=== PATIENT | male | born 1990 | race Caucasian/White ===

== ENCOUNTER 2022-04-18 08:00 | Outpatient (CLI) | payer OTHER | END 2022-04-18 23:59 | disposition home or self-care (01) | LOC: LAB.N 08:00 | PROVIDERS: ATTEND Nurse Practitioner | DX: U07.1 COVID-19 (principal) ==

== ENCOUNTER 2022-11-10 14:31 | Outpatient (CLI) | payer OTHER | END 2022-11-10 14:32 | disposition home or self-care (01) | LOC: SC 14:31 | PROVIDERS: ATTEND Nurse Practitioner Family | DX: G47.33 Obstructive sleep apnea (adult) (pediatric) (principal); R09.02 Hypoxemia | CPT/HCPCS: 95806 ==

== ENCOUNTER 2022-11-16 08:40 | Outpatient (CLI) | payer OTHER ==
[2022-11-16 09:20] VITALS: BP 126/78
--- NOTE | 2022-11-16 09:20 | SLEEP CARE CONSULTATION ---
Information from patient questionnaire entered by Irina Cerda. I have reviewed and concur with the information entered by Irina Cerda. This document represents the service I personally performed and the decisions made by , Radha Avery ARNP. History of Present Illness Service Date and Time: 11/16/2022 0840 Initial [place] Sleepiness Scale score: 19 (10/05/22) Current [place] Sleepiness Scale score: 19 (11/16/22) Additional HPI information: JENNIFER DORSEY returns for follow up and results of the recently performed home sleep study. I explained the pathophysiology behind obstructive sleep apnea. We then spent quite a bit of time discussing different treatment options. For mild obstructive sleep apnea, surgery and oral appliance are alternatives to nasal CPAP therapy but in moderate or severe cases, nasal CPAP is the most effective and reliable treatment. Because apnea is primarily in supine position, then positional management therapy could be effective. Methods discussed such as positioning with pillows, using a T-shirt with tennis balls in the back, or commercially available products that have a pillow format on back to prevent supine sleep. I reviewed the impact of weight changes on sleep apnea and strongly recommended losing weight. After some discussion, the patient opted to go with the nasal CPAP therapy. Nasal autoCPAP set at 4-15 cmH20 will be ordered with rationale explained. A manual titration study will be ordered if unable to find optimal pressure with office adjustments. I explained how CPAP machine works and what to expect when using the machine. Using CPAP every night in order to get used to it was emphasized. Patient advised to put CPAP mask on before getting into bed so as not to fall asleep without CPAP. To assist acclimation to CPAP use, it could also be used for a short time during day while reading or watching TV. The patient was instructed to call the CPAP supplier to discuss any mechanical problem that may occur. If the mask given is uncomfortable or is difficult to keep on through the night even with adjustment, contact the CPAP supplier as many will replace with another mask style if notified before 30 days. If snoring or perceives is not getting enough air or too much air from the machine, notify this office. Patient counseled not drink alcohol less than 4 hours before bedtime as it can increase snoring and apnea. Patient was cautioned about risks of drowsy driving until sleepiness symptoms resolve. Sleep Study - Results Type of Sleep Study: Home sleep study (COMPLETED 11-10-22) Prior sleep studies: No Polysomnography/Home Sleep Study results: Physician Impression: The quality of the study is good. The length of the study is adequate (> 240 minutes). Please also see the tabulated and graphic data. 1. Obstructive Sleep Apnea-Hypopnea (ICD-10 G47.33), moderate, with an AHI of 20.0/hr and tika SaO2 of 82%. During the study, the patient had 107 apneas (107 obstructive, 0 central, 0 mixed) and 96 hypopneas. The longest episode lasted 118.5 seconds. The respiratory events occurred more frequently during supine sleep (supine AHI was 32.0 and non-supine, 6.16). 2. Hypoxemia (ICD-10 R09.02), mild, with the lowest oxygen saturation of 82 % and 7.1 minutes with SaO2 under 90%. Baseline oxygen saturation was normal (Average oxygen saturation was 94%). Allergies and Home Medications Drug allergies reviewed: Yes (NKDA) Home medication list reviewed: Yes (no changes) Review of Systems Review of systems same as previous: Yes (no changes) Physical Exam Vital signs obtained and entered by: IRINA Hampton MA Blood Pressure: 126/78 (LEFT ARM) Cuff size: regular Heart Rate: 72 O2 Saturation: 96 Height: 5 ft 11 in Weight: 215 lb 9.6 oz Body Mass Index: 30.0 BMI Classification: Obese Impression and Plan 1. Obstructive Sleep Apnea-Hypopnea Syndrome, moderate, with lowest oxygen s aturation of 82%. Obviously this is the cause of the patients symptoms of unrefreshed sleep, and excessive daytime sleepiness. Positive pressure therapy could benefit hypertension. As mentioned above, the patient will be started on nasal autoCPAP therapy with pressure set at 4-15 cmH2O. A manual titration study will be completed if unable to find optimal treatment pressure with office adjustments. Compliance guidelines also reviewed. A copy of compliance guidelines will be given for reference at check out. Because the apnea is more severe supine, I instructed to avoid sleeping supine using pillow positioning until able to start CPAP use. 2. Hypoxemia, mild, with a tika oxygen saturation of 82% and 7.1 minutes spent under 90%. His baseline oxygen saturation was normal with an average oxygen saturation of 94%. * Nasal auto CPAP therapy, pressure at 4-15 cm H2O. * Attempt to lose weight. * Avoid alcohol consumption near bedtime. * Avoid supine sleep until using CPAP. * The patient is again cautioned about driving until sleepiness completely resolves. * Return one month after CPAP obtained. I will assess response to therapy and compliance at that time. Counseling Topics: Weight loss health impact Visit Type: In Office Time Spent with Patient (minutes): 20 Provider Statement: I spent 100% of the Face to Face Visit with the patient with greater than 50% spent counseling the patient and coordination of care.
== END 2022-11-16 08:41 | disposition home or self-care (01) ==
LOC: SC 08:40
PROVIDERS: ATTEND Nurse Practitioner Family
DX: G47.33 Obstructive sleep apnea (adult) (pediatric) (principal); R09.02 Hypoxemia; E66.9 Obesity, unspecified; Z68.30 Body mass index [BMI] 30.0-30.9, adult
CPT/HCPCS: 99212; 99213

== ENCOUNTER 2023-01-19 12:52 | Outpatient (CLI) | payer OTHER ==
--- NOTE | 2023-01-19 13:17 | SLEEP CARE CONSULTATION ---
Information from patient questionnaire entered by Nu Cerda. I have reviewed and concur with the information entered by Nu Cerda. This document represents the service I personally performed and the decisions made by , Radha Avery ARNP. History of Present Illness Service Date and Time: 01/19/2023 1252 Previous diagnosis: Moderate, Obstructive Sleep Apnea-Hypopnea Syndrome AHI: 20.0 (in 2022) Reason for follow up: first compliance (SET UP 11/27/22) Equipment type: CPAP (RESMED Airsense 10, s/u 11/2022; SD CARD NEEDED FOR DOWNLOAD AND PRESSURE CHANGES) Equipment obtained from: Other ([facility]; got initial supplies) Mask style: Nasal pillows ([place] II; switches with nasal cushion (N20)) Backup mask available: Yes (other mask) Last cushion change: last week Prior sleep studies: No Type of Sleep Study: Home sleep study (COMPLETED 11-10-22) HPI additional information: JENNIFER DORSEY was diagnosed to have moderate, AHI 20.0, obstructive sleep apnea-hypopnea syndrome and returned today for CPAP therapy first compliance follow-up. Sleep Study - Results Type of Sleep Study: Home sleep study (COMPLETED 11-10-22) Prior sleep studies: No CPAP Compliance Data - Data Reviewed with Patient Average duration of nightly device use: 6 hours 16 minutes Compliance rate %: 83 (41/46 days used) Current pressure setting (cmH2O): 4-15 (median 5.9, avg 8.5, max 10.2) Average residual AHI: 1.2 Central apnea: 0.3 Obstructive apnea: 0.3 Hypopnea: 0.4 Average large leak: 0.1 L/min Subjective Missed days of use due to: reports: mask issues (took off mask when sleeping) Patient concerns: reports: condensation in mask/hose. denies: aerophagia, mask discomfort, air blowing in eyes, mask leak noise, nasal congestion, dry mouth, nose, throat, epistaxis Observed to snore while using device: No Current pressure setting perceived as: comfortable On therapy, patient: reports: sleeping better, awakening more refreshed, being more awake and alert during the day, more rested overall. denies: drowsiness while driving (improving) Initial [place] Sleepiness Scale score: 19 (10/05/22) Current [place] Sleepiness Scale score: 15 (01/19/23) Allergies and Home Medications Known drug allergies: No Drug allergies reviewed: Yes Home medication list reviewed: Yes (pill for inflammation (can't remember name)) Allergy and home medication list: Allergies No Known Drug Allergies Allergy (Verified 01/18/23 16:51) Review of Systems Review of systems same as previous: No (sprained tendon in left ankle) Physical Exam Vital signs obtained and entered by: NU Hampton MA Blood Pressure: 122/82 (LEFT ARM) Cuff size: regular Heart Rate: 83 O2 Saturation: 98 Height: 5 ft 11 in Weight: 205 lb (PER PT) Weight change since last visit: 10 lb loss Body Mass Index: 28.5 BMI Classification: Overweight Impression and Plan 1. Obstructive Sleep Apnea-Hypopnea Syndrome, moderate, with good treatment compliance and good apnea control. On CPAP therapy, the patient has better sleep quality and is more rested overall. He has significant improvement of his sleep apnea. The patients pressure will be changed to autoCPAP 8-10 cmH20 to reflect pressures being used. Patient advised to contact me if pressure change is uncomfortable so that it can be adjusted. Goals for apnea control discussed. Patient reports getting some condensation in his mask. He tried to adjust his humidity down but then got a very dry throat. He turned it back on to automatic. He states it does not have condensation every night. I advised trying to increase heated hose setting if condensation continues to be a problem. He voiced understanding. Patient's apnea severity and rationale for treatment to reduce apnea, improve sleep quality and reduce cardiovascular and cerebrovascular events was reviewed. I also reviewed the benefit of consistent device use of CPAP for hypertension. 2. Overweight, unspecified. Currently patients BMI is 28.5. He has lost weight Obesity increases the risk of apnea, CPAP pressure requirements and overall health risks especially cardiovascular and diabetes. Thus patient is advised to continue to try to lose weight. * Change auto CPAP pressure to 8-10 cmH2O * Notify me if snoring with mask or feeling that the pressure is too much or too little * Continue to try to lose weight * Call this office if any problems using CPAP * Return for follow up in 1-2 months, or sooner if concerns arise Counseling Topics: Spare mask, Weight loss health impact Visit Type: In Office Time Spent with Patient (minutes): 20 Provider Statement: I spent 100% of the Face to Face Visit with the patient with greater than 50% spent counseling the patient and coordination of care.
[2023-01-19 13:25] VITALS: BP 122/82
== END 2023-01-19 12:53 | disposition home or self-care (01) ==
LOC: SC 12:52
PROVIDERS: ATTEND Nurse Practitioner Family
DX: G47.33 Obstructive sleep apnea (adult) (pediatric) (principal); E66.3 Overweight; Z68.28 Body mass index [BMI] 28.0-28.9, adult
CPT/HCPCS: 99212; 99213

== ENCOUNTER 2023-02-20 10:21 | Outpatient (CLI) | payer OTHER ==
--- NOTE | 2023-02-20 10:53 | Sleep Patient Instructions ---
Sleep Center Visit Summary - Patient Visit Information Reason for Visit: One month follow up of CPAP therapy after pressure change. - Patient Instructions Additional Instructions: Patient will return for 3-month follow-up of her CPAP therapy. - Clinic Information Contact: [facility] [address] [place] [address] [email or web address] T: [phone]
--- NOTE | 2023-02-20 10:57 | SLEEP CARE CONSULTATION ---
Information from patient questionnaire entered by Irina Cerda. I have reviewed and concur with the information entered by Irina Cerda. This document represents the service I personally performed and the decisions made by , Radha Avery ARNP. History of Present Illness Service Date and Time: 02/20/2023 1021 Previous diagnosis: Moderate, Obstructive Sleep Apnea-Hypopnea Syndrome AHI: 20.0 (in 2022) Reason for follow up: one month (F/U) Equipment type: CPAP (RESMED Airsense 10, s/u 11/2022; SD CARD NEEDED FOR DOWNLOAD AND PRESSURE CHANGES) Equipment obtained from: Other ([facility]; getting supplies) Mask style: Nasal pillows ([place] II; switches with nasal cushion (N20)) Backup mask available: Yes (other mask) Last cushion change: 2 weeks ago Prior sleep studies: No Type of Sleep Study: Home sleep study (COMPLETED 11-10-22) HPI additional information: JENNIFER DORSEY was diagnosed to have moderate, AHI 20, obstructive sleep apnea-hypopnea syndrome and returned today for CPAP therapy one month with pressure change follow-up. Sleep Study - Results Type of Sleep Study: Home sleep study (COMPLETED 11-10-22) Prior sleep studies: No CPAP Compliance Data - Data Reviewed with Patient Average duration of nightly device use: 5 hours 54 minutes Compliance rate %: 81 (73/78 days used) Current pressure setting (cmH2O): 8-10 Average residual AHI: 1.1 Central apnea: 0.2 Obstructive apnea: 0.4 Hypopnea: 0.3 Average large leak: 0.1 lpm Subjective Missed days of use due to: reports: other (falling asleep without when taking care of child) Patient concerns: reports: condensation in mask/hose (has improved with changing setting to Auto). denies: aerophagia, mask discomfort, air blowing in eyes, mask leak noise, nasal congestion, dry mouth, nose, throat, epistaxis Observed to snore while using device: No Current pressure setting perceived as: comfortable On therapy, patient: reports: sleeping better, awakening more refreshed, being more awake and alert during the day, more rested overall, drowsiness while driving (it is improving) Initial [place] Sleepiness Scale score: 19 (10/05/22) Current [place] Sleepiness Scale score: 17 (02/20/23) Allergies and Home Medications Known drug allergies: No Drug allergies reviewed: Yes Home medication list reviewed: Yes (indomethacin 25 mg; Allopurinol 100 mg) Allergy and home medication list: Allergies No Known Drug Allergies Allergy (Verified 02/19/23 09:06) Review of Systems Review of systems same as previous: Yes (no changes) Physical Exam Vital signs obtained and entered by: IRINA Hampton MA Blood Pressure: 112/72 (LEFT ARM) Cuff size: regular Heart Rate: 88 O2 Saturation: 95 Height: 5 ft 11 in Weight: 211 lb 3.2 oz Weight change since last visit: 6 lb gain Body Mass Index: 29.4 BMI Classification: Overweight Impression and Plan 1. Obstructive Sleep Apnea-Hypopnea Syndrome, moderate, with good treatment compliance and good apnea control. On CPAP therapy, the patient has better sleep quality and is more rested overall. 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 He is doing well and feels the condensation in the tubing has improved overall with changing his machine to Auto. I will have him follow up in 3 months. Patient's apnea severity and rationale for treatment to reduce apnea, improve sleep quality and reduce cardiovascular and cerebrovascular events was reviewed. I also reviewed the benefit of consistent device use of CPAP for hypertension. 2. Overweight, unspecified. Currently patients BMI is 29.4. He has gained weight. Obesity increases the risk of apnea, CPAP pressure requirements and overall health risks especially cardiovascular and diabetes. Thus patient is advised to lose weight. * Continue auto CPAP pressure at 8-10 cmH2O * Notify me if snoring with mask or feeling that the pressure is too much or too little * Attempt to lose weight * Call this office if any problems using CPAP * Return for follow up in 3 months, or sooner if concerns arise Counseling Topics: Spare mask, Weight loss health impact Visit Type: In Office Time Spent with Patient (minutes): 16 Provider Statement: I spent 100% of the Face to Face Visit with the patient with greater than 50% spent counseling the patient and coordination of care.
[2023-02-20 11:06] VITALS: BP 112/72
== END 2023-02-20 10:22 | disposition home or self-care (01) ==
LOC: SC 10:21
PROVIDERS: ATTEND Nurse Practitioner Family
DX: G47.33 Obstructive sleep apnea (adult) (pediatric) (principal); E66.3 Overweight; Z68.29 Body mass index [BMI] 29.0-29.9, adult
CPT/HCPCS: 99212

== ENCOUNTER 2023-05-25 12:42 | Outpatient (CLI) | payer OTHER ==
--- NOTE | 2023-05-25 13:08 | Sleep Patient Instructions ---
Sleep Center Visit Summary - Patient Visit Information Reason for Visit: Three month follow up for PAP therapy - Patient Instructions Additional Instructions: You were here for follow up of CPAP therapy. You will be continued on CPAP therapy with pressure at 8-10 cmH2O. You should follow up with sleep care in 6 months. You may contact us sooner for any questions or concerns. - Clinic Information Contact: [facility] [address] [place] [address] [email or web address] T: [phone]
--- NOTE | 2023-05-25 13:15 | SLEEP CARE CONSULTATION ---
Information from patient questionnaire entered by Irina Cerda. I have reviewed and concur with the information entered by Irina Cerda. This document represents the service I personally performed and the decisions made by , Radha Avery ARNP. History of Present Illness Service Date and Time: 05/25/2023 1242 Previous diagnosis: Moderate, Obstructive Sleep Apnea-Hypopnea Syndrome AHI: 20 (in 2022) Reason for follow up: three month (F/U) Equipment type: CPAP (RESMED Airsense 10, s/u 11/2022; SD CARD NEEDED FOR DOWNLOAD AND PRESSURE CHANGES) Equipment obtained from: Other ([facility]; getting supplies) Mask style: Nasal pillows ([place] II; switches with nasal cushion (N20)) Backup mask available: Yes (other mask) Last cushion change: last month Prior sleep studies: No Type of Sleep Study: Home sleep study (COMPLETED 11-10-22) HPI additional information: JENNIFER DORSEY was diagnosed to have moderate, AHI 20, obstructive sleep apnea-hypopnea syndrome and returned today for CPAP therapy three month follow- up. Sleep Study - Results Type of Sleep Study: Home sleep study (COMPLETED 11-10-22) Prior sleep studies: No CPAP Compliance Data - Data Reviewed with Patient Average duration of nightly device use: 5 hours 44 minutes Compliance rate %: 81 (75/90 days used) Current pressure setting (cmH2O): 8-10 Average residual AHI: 0.6 Central apnea: 0.2 Obstructive apnea: 0.2 Hypopnea: 0.2 Average large leak: 0.1 L/min Subjective Missed days of use due to: reports: travel Patient concerns: reports: condensation in mask/hose. denies: aerophagia, mask discomfort, air blowing in eyes, mask leak noise, nasal congestion, dry mouth, nose, throat, epistaxis Observed to snore while using device: No Current pressure setting perceived as: comfortable On therapy, patient: reports: sleeping better, awakening more refreshed, being more awake and alert during the day, more rested overall. denies: drowsiness while driving Initial [place] Sleepiness Scale score: 19 (10/05/22) Current [place] Sleepiness Scale score: 14 (05/25/23) Allergies and Home Medications Known drug allergies: No Drug allergies reviewed: Yes Home medication list reviewed: Yes (no changes) Allergy and home medication list: Allergies No Known Drug Allergies Allergy (Verified 05/24/23 14:08) Review of Systems Review of systems same as previous: Yes (no changes) Physical Exam Vital signs obtained and entered by: IRINA Hampton MA Blood Pressure: 112/78 (LEFT ARM) Cuff size: regular Heart Rate: 86 O2 Saturation: 97 Height: 5 ft 11 in Weight: 205 lb 12.8 oz Body Mass Index: 28.7 BMI Classification: Overweight Impression and Plan 1. Obstructive Sleep Apnea-Hypopnea Syndrome, moderate, with good treatment compliance and good apnea control. On CPAP therapy, the patient has better sleep quality and is more rested overall. Patient has significant improvement of their sleep apnea and is satisfied with current CPAP therapy. Patient getting a little bit of condensation and I encouraged him to adjust the humidity. He is also feeling like the pressure is a little high when he first puts the mask on but states he gets used to it quickly. We will adjust the ramp starting pressure to help with comfort. Patient's apnea severity and rationale for treatment to reduce apnea, improve sleep quality and reduce cardiovascular and cerebrovascular events was reviewed. I also reviewed the benefit of consistent device use of CPAP for hypertension. 2. Overweight, unspecified. Currently patients BMI is 28.7. Obesity increases the risk of apnea, CPAP pressure requirements and overall health risks especially cardiovascular and diabetes. Thus patient is advised to lose weight. * Continue auto CPAP pressure at 8-10 cmH2O * Notify me if snoring with mask or feeling that the pressure is too much or too little * Attempt to lose weight * Call this office if any problems using CPAP * Return for follow up in 6 months, or sooner if concerns arise Counseling Topics: Spare mask, Weight loss health impact Visit Type: In Office Time Spent with Patient (minutes): 20 Provider Statement: I spent 100% of the Face to Face Visit with the patient with greater than 50% spent counseling the patient and coordination of care.
[2023-05-25 13:21] VITALS: BP 112/78
== END 2023-05-25 12:43 | disposition home or self-care (01) ==
LOC: SC 12:42
PROVIDERS: ATTEND Nurse Practitioner Family
DX: G47.33 Obstructive sleep apnea (adult) (pediatric) (principal); E66.3 Overweight; Z68.28 Body mass index [BMI] 28.0-28.9, adult
CPT/HCPCS: 99212; 99213